=== PATIENT | male | born 1985 | race Caucasian/White ===

== ENCOUNTER 2016-10-10 11:12 | Emergency (ER) | payer OTHER ==
[~2016-10-10 11:12] MED LIST: /CELE20CA OR; /PANT40TA OR; No Historical Meds; PERC5TAB8 OR
--- NOTE | 2016-10-10 12:12 | EDDOCDS ---
Physician Documentation [facility] Name: Dallin Menendez Age: 31 yrs Sex: Male : 1985 Arrival Date: 10/10/2016 Time: 11:12 Bed TR3 Private MD: Charli Guardado Disposition: 10/10/16 12:01 Discharged to Home/Self Care. Impression: Cervical disc disorder with radiculopathy, cervicothoracic region - CAUSING PAIN BILATERALLY. - Condition is Stable. - Discharge Instructions: Cervical Radiculopathy. - Prescriptions for Valium 5 mg Oral Tablet - take 1 tablet by ORAL route at bedtime As needed MDD: 3 tabs; 12 tablet. Prednisone 20 mg Oral Tablet - take 2 tablet by ORAL route once daily for 5 days; 10 tablet. - Medication Reconciliation, Local Pharmacy Hours form. - Follow up: Emergency Department; When: As needed; Reason: Worsening of conditions. Follow up: Private Physician; When: 2 - 3 days; Reason: Wound/Symptom Recheck, Recheck today's complaints, Continuance of care. - Problem is new. - Symptoms are unchanged. Historical: - Allergies: no known allergies; - Home Meds: 1. none - PMHx: GERD; lacerated kidney; - PSHx: right hand surgery; - Social history: Smoking status: Patient uses tobacco products, current some day smoker. No barriers to communication noted, The patient speaks fluent Irish, Speaks appropriately for age. - Family history: Not pertinent. - : The pt / caregiver states he / she is not on anticoagulants. Home medication list is obtained from the patient. - Exposure Risk Screening:: None identified. Vital Signs: 10/10 11:15 BP 113 / 67; Pulse 74; Resp 18; Temp 97.1; Pulse Ox 98% on R/A; Weight 81.65 kg / jrd 180.01 lbs (R); Height 5 ft. 7 in. (170.18 cm) (R); Pain 6/10; 11:15 Body Mass Index 28.19 (81.65 kg, 170.18 cm) jrd MDM: 12:03 Financial registration complete. lg Signatures: Royce Nguyen, Reg Reg lg Alexy Alvarez RN RN mlb1 Laura Deal PA-C PALali dt4 Belles,Alexy,RN RN mb9 JUANISD
--- NOTE | 2016-10-10 12:12 | EDDOCDS ---
Nurse's Notes [facility] Name: Dallin Menendez Age: 31 yrs Sex: Male : 1985 Arrival Date: 10/10/2016 Time: 11:12 Bed TR3 Private MD: Charli Guardado Diagnosis: Cervical disc disorder with radiculopathy, cervicothoracic region-CAUSING PAIN BILATERALLY Presentation: 10/10 11:20 Presenting complaint: Patient states: Neck and bilateral shoulder pain began six months mlb1 ago worse in the past few days. Risk Factors No acute neurological deficit is noted. Adult Sepsis Screening: The patient does not have new or worsening altered mentation. Patient's respiratory rate is less than 22. Systolic blood pressure is greater than 100. Patient has a qSOFA score of 0- Negative Sepsis Screen. Suicide/Homicide risk assessment- the patient denies having any suicidal and/or homicidal ideations and does not present with any other emotional, behavioral or mental health complaints. Status: Patient is not a seafood service team member or dependent. Transition of care: patient was not received from another setting of care. 11:20 Acuity: SARABJIT Level 4 mlb1 11:20 Method Of Arrival: Walkin/Carried/Asstd mlb1 Triage Assessment: 11:21 General: Appears uncomfortable, Behavior is appropriate for age, cooperative. Pain: mlb1 Location: back of neck Pain currently is 6 out of 10 on a pain scale. At worst was 10 out of 10 on a pain scale. Aggravated by increased activity, repositioning. HIV screening NA for this visit Offered previously. Historical: - Allergies: no known allergies; - Home Meds: 1. none - PMHx: GERD; lacerated kidney; - PSHx: right hand surgery; - Social history: Smoking status: Patient uses tobacco products, current some day smoker. No barriers to communication noted, The patient speaks fluent Malay, Speaks appropriately for age. - Family history: Not pertinent. - : The pt / caregiver states he / she is not on anticoagulants. Home medication list is obtained from the patient. - Exposure Risk Screening:: None identified. Screenin:22 Screening information is obtained from the patient. Fall risk: No risks identified. mlb1 Assistance ADL's: requires no assistance with activities of daily living. Abuse/DV Screen: The patient / caregiver reports he/she is: not in a situation that causes fear, pain or injury. Nutritional screening: No deficits noted. Advance Directives: Currently, there is no health care proxy. home support is adequate. Assessment: 12:09 General: Appears uncomfortable, Behavior is appropriate for age, cooperative. Pain: mb9 Location: back of neck Pain currently is 5 out of 10 on a pain scale. Neurological: Level of Consciousness is awake, alert, Oriented to person, place, time. Respiratory: Airway is patent Respiratory effort is even, unlabored. Vital Signs: 11:15 BP 113 / 67; Pulse 74; Resp 18; Temp 97.1; Pulse Ox 98% on R/A; Weight 81.65 kg (R); jrd Height 5 ft. 7 in. (170.18 cm) (R); Pain 6/10; 11:15 Body Mass Index 28.19 (81.65 kg, 170.18 cm) [facility] Vitals: 11:15 Log In Time: October 10, 2016 at 10:45. [facility] ED Course: 11:14 Patient visited by Rip Boyle PCA. jrd 11:14 Patient moved to Waiting jrd 11:15 Charli Guardado is Private Physician. jrd 11:16 Patient visited by Rip Boyle PCA. jrd 11:16 Patient moved to Pre RCE jrd 11:20 Patient visited by Alexy Alvarez RN. mlb1 11:21 Triage Initiated mlb1 11:22 The patient / caregiver is instructed regarding the plan of care and ED course. mlb1 11:23 Patient visited by Alexy Alvarez RN. mlb1 11:23 Patient moved to Triage 1 mlb1 11:25 Patient moved to Pre RCE mlb1 11:32 Patient moved to Triage 3 mb9 11:45 [facility] dt4 11:45 Owen Evans MD is Attending Physician. dt4 11:45 Patient visited by Laura Deal PA-C. dt4 12:08 Patient moved to TR3 mb9 12:09 No IV's were initiated during this patient's visit. No procedures done that require mb9 assistance. Order Results: There are currently no results for this order. Outcome: 12:01 Discharge ordered by Provider. dt4 12:09 Discharge Assessment: Patient awake, alert and oriented x 3. No cognitive and/or mb9 functional deficits noted. Patient verbalized understanding of disposition instructions. patient administered narcotics - no. The following High Risk Discharge criteria are identified: None. Discharged to home ambulatory. Condition: good Condition: stable Condition: improved. Discharge instructions given to patient, Instructed on discharge instructions, follow up and referral plans. medication usage, no driving heavy equipment, Demonstrated understanding of instructions, medications, Pt was receptive of discharge instructions/ teaching. Prescriptions given X 2. No special radiology studies were completed. Property :Personal belongings accompany Pt. 12:11 Patient left the ED. mb9 Signatures: Alexy Alvarez, RN RN mlb1 Laura Deal, PAIbethC PA-Mary dt4 Rip Boyle, [employer]EN [employer]AC[employer] TECHNICIAN Alexy Corrales,RN RN mb9 FLOR
--- NOTE | 2016-10-12 13:12 | EDDOCDS ---
Physician Documentation [facility] Name: Dallin Menendez Age: 31 yrs Sex: Male : 1985 Arrival Date: 10/10/2016 Time: 11:12 Bed TR3 Private MD: Charli Guardado Disposition: 10/10/16 12:01 Discharged to Home/Self Care. Impression: Cervical disc disorder with radiculopathy, cervicothoracic region - CAUSING PAIN BILATERALLY. - Condition is Stable. - Discharge Instructions: Cervical Radiculopathy. - Prescriptions for Valium 5 mg Oral Tablet - take 1 tablet by ORAL route at bedtime As needed MDD: 3 tabs; 12 tablet. Prednisone 20 mg Oral Tablet - take 2 tablet by ORAL route once daily for 5 days; 10 tablet. - Medication Reconciliation, Local Pharmacy Hours form. - Follow up: Emergency Department; When: As needed; Reason: Worsening of conditions. Follow up: Private Physician; When: 2 - 3 days; Reason: Wound/Symptom Recheck, Recheck today's complaints, Continuance of care. - Problem is new. - Symptoms are unchanged. Historical: - Allergies: no known allergies; - Home Meds: 1. none - PMHx: GERD; lacerated kidney; - PSHx: right hand surgery; - Social history: Smoking status: Patient uses tobacco products, current some day smoker. No barriers to communication noted, The patient speaks fluent Mozambican, Speaks appropriately for age. - Family history: Not pertinent. - : The pt / caregiver states he / she is not on anticoagulants. Home medication list is obtained from the patient. - Exposure Risk Screening:: None identified. Vital Signs: 10/10 11:15 BP 113 / 67; Pulse 74; Resp 18; Temp 97.1; Pulse Ox 98% on R/A; Weight 81.65 kg / jrd 180.01 lbs (R); Height 5 ft. 7 in. (170.18 cm) (R); Pain 6/10; 11:15 Body Mass Index 28.19 (81.65 kg, 170.18 cm) jrd MDM: 12:03 Financial registration complete. lg 12:25 [facility] Payment Agreement was scanned into [employer] and attached to record. lg 14:28 T-Sheet-- Draft Copy was scanned into [employer] and attached to record. klr Signatures: Ganter, LoriLee, Reg Reg lg Alexy Alavrez RN RN mlb1 Laura Deal PA-C PALali dt4 Alexy Burton RN RN mb9 Zehra Schusterr The chart was reviewed and I authenticate all verbal orders and agree with the evaluation and treatment provided.Attachments: 12:25 [facility] Payment Agreement lg 14:28 T-Sheet-- Draft Copy klr Chart Complete MTDD
--- NOTE | 2016-10-12 13:12 | EDDOCDS ---
Physician Documentation [facility] Name: Dallin Menendez Age: 31 yrs Sex: Male : 1985 Arrival Date: 10/10/2016 Time: 11:12 Bed TR3 Private MD: Charli Guardado Disposition: 10/10/16 12:01 Discharged to Home/Self Care. Impression: Cervical disc disorder with radiculopathy, cervicothoracic region - CAUSING PAIN BILATERALLY. - Condition is Stable. - Discharge Instructions: Cervical Radiculopathy. - Prescriptions for Valium 5 mg Oral Tablet - take 1 tablet by ORAL route at bedtime As needed MDD: 3 tabs; 12 tablet. Prednisone 20 mg Oral Tablet - take 2 tablet by ORAL route once daily for 5 days; 10 tablet. - Medication Reconciliation, Local Pharmacy Hours form. - Follow up: Emergency Department; When: As needed; Reason: Worsening of conditions. Follow up: Private Physician; When: 2 - 3 days; Reason: Wound/Symptom Recheck, Recheck today's complaints, Continuance of care. - Problem is new. - Symptoms are unchanged. Historical: - Allergies: no known allergies; - Home Meds: 1. none - PMHx: GERD; lacerated kidney; - PSHx: right hand surgery; - Social history: Smoking status: Patient uses tobacco products, current some day smoker. No barriers to communication noted, The patient speaks fluent Indonesian, Speaks appropriately for age. - Family history: Not pertinent. - : The pt / caregiver states he / she is not on anticoagulants. Home medication list is obtained from the patient. - Exposure Risk Screening:: None identified. Vital Signs: 10/10 11:15 BP 113 / 67; Pulse 74; Resp 18; Temp 97.1; Pulse Ox 98% on R/A; Weight 81.65 kg / jrd 180.01 lbs (R); Height 5 ft. 7 in. (170.18 cm) (R); Pain 6/10; 11:15 Body Mass Index 28.19 (81.65 kg, 170.18 cm) jrd MDM: 12:03 Financial registration complete. lg 12:25 [facility] Payment Agreement was scanned into [employer] and attached to record. lg 14:28 T-Sheet-- Draft Copy was scanned into [employer] and attached to record. klr Signatures: Ganter, LoriLee, Reg Reg lg Alexy Alvarez RN RN mlb1 Laura Deal PA-C PALali dt4 Alexy Burton RN RN mb9 Zehra Schusterr The chart was reviewed and I authenticate all verbal orders and agree with the evaluation and treatment provided.Attachments: 12:25 [facility] Payment Agreement lg 14:28 T-Sheet-- Draft Copy klr Chart Complete MTDD
--- NOTE | 2016-10-12 13:12 | EDDOCDS ---
Nurse's Notes [facility] Name: Dallin Menendez Age: 31 yrs Sex: Male : 1985 Arrival Date: 10/10/2016 Time: 11:12 Bed TR3 Private MD: Charli Guardado Diagnosis: Cervical disc disorder with radiculopathy, cervicothoracic region-CAUSING PAIN BILATERALLY Presentation: 10/10 11:20 Presenting complaint: Patient states: Neck and bilateral shoulder pain began six months mlb1 ago worse in the past few days. Risk Factors No acute neurological deficit is noted. Adult Sepsis Screening: The patient does not have new or worsening altered mentation. Patient's respiratory rate is less than 22. Systolic blood pressure is greater than 100. Patient has a qSOFA score of 0- Negative Sepsis Screen. Suicide/Homicide risk assessment- the patient denies having any suicidal and/or homicidal ideations and does not present with any other emotional, behavioral or mental health complaints. Status: Patient is not a direct service professional or dependent. Transition of care: patient was not received from another setting of care. 11:20 Acuity: SARABJIT Level 4 mlb1 11:20 Method Of Arrival: Walkin/Carried/Asstd mlb1 Triage Assessment: 11:21 General: Appears uncomfortable, Behavior is appropriate for age, cooperative. Pain: mlb1 Location: back of neck Pain currently is 6 out of 10 on a pain scale. At worst was 10 out of 10 on a pain scale. Aggravated by increased activity, repositioning. HIV screening NA for this visit Offered previously. Historical: - Allergies: no known allergies; - Home Meds: 1. none - PMHx: GERD; lacerated kidney; - PSHx: right hand surgery; - Social history: Smoking status: Patient uses tobacco products, current some day smoker. No barriers to communication noted, The patient speaks fluent Upper Sorbian, Speaks appropriately for age. - Family history: Not pertinent. - : The pt / caregiver states he / she is not on anticoagulants. Home medication list is obtained from the patient. - Exposure Risk Screening:: None identified. Screenin:22 Screening information is obtained from the patient. Fall risk: No risks identified. mlb1 Assistance ADL's: requires no assistance with activities of daily living. Abuse/DV Screen: The patient / caregiver reports he/she is: not in a situation that causes fear, pain or injury. Nutritional screening: No deficits noted. Advance Directives: Currently, there is no health care proxy. home support is adequate. Assessment: 12:09 General: Appears uncomfortable, Behavior is appropriate for age, cooperative. Pain: mb9 Location: back of neck Pain currently is 5 out of 10 on a pain scale. Neurological: Level of Consciousness is awake, alert, Oriented to person, place, time. Respiratory: Airway is patent Respiratory effort is even, unlabored. Vital Signs: 11:15 BP 113 / 67; Pulse 74; Resp 18; Temp 97.1; Pulse Ox 98% on R/A; Weight 81.65 kg (R); jrd Height 5 ft. 7 in. (170.18 cm) (R); Pain 6/10; 11:15 Body Mass Index 28.19 (81.65 kg, 170.18 cm) [facility] Vitals: 11:15 Log In Time: October 10, 2016 at 10:45. [facility] ED Course: 11:14 Patient visited by Rip Boyle PCA. jrd 11:14 Patient moved to Waiting jrd 11:15 Charli Guardado is Private Physician. jrd 11:16 Patient visited by Rip Boyle PCA. jrd 11:16 Patient moved to Pre RCE jrd 11:20 Patient visited by Alexy Alvarez, GILMAR. mlb1 11:21 Triage Initiated mlb1 11:22 The patient / caregiver is instructed regarding the plan of care and ED course. mlb1 11:23 Patient visited by Alexy Alvarez RN. mlb1 11:23 Patient moved to Triage 1 mlb1 11:25 Patient moved to Pre RCE mlb1 11:32 Patient moved to Triage 3 mb9 11:45 Laura Deal PA-C is PHCP. dt4 11:45 Owen Evans MD is Attending Physician. dt4 11:45 Patient visited by Laura Deal PA-C. dt4 12:08 Patient moved to TR3 mb9 12:09 No IV's were initiated during this patient's visit. No procedures done that require mb9 assistance. 12:25 [facility] [place] Agreement was scanned into [employer] and attached to record. lg 14:28 T-Sheet-- Draft Copy was scanned into [employer] and attached to record. klr Order Results: There are currently no results for this order. Outcome: 12:01 Discharge ordered by Provider. dt4 12:09 Discharge Assessment: Patient awake, alert and oriented x 3. No cognitive and/or mb9 functional deficits noted. Patient verbalized understanding of disposition instructions. patient administered narcotics - no. The following High Risk Discharge criteria are identified: None. Discharged to home ambulatory. Condition: good Condition: stable Condition: improved. Discharge instructions given to patient, Instructed on discharge instructions, follow up and referral plans. medication usage, no driving heavy equipment, Demonstrated understanding of instructions, medications, Pt was receptive of discharge instructions/ teaching. Prescriptions given X 2. No special radiology studies were completed. Property :Personal belongings accompany Pt. 12:11 Patient left the ED. mb9 Signatures: Royce Nguyen, Alexy Lopez lg RN RN mlb1 Laura Deal, PA-C PA-C dt4 Rip Boyle PCA PCA jrd Belles, MichaelRN RN mb9 Zehra Schuster klr Chart Complete FLOR
== END 2016-10-10 12:11 | disposition home or self-care (01) ==
LOC: M ED 11:12
DX: M54.12 Radiculopathy, cervical region (principal); K21.9 Gastro-esophageal reflux disease without esophagitis; Z72.0 Tobacco use

== ENCOUNTER 2018-02-25 21:26 | Emergency (ER) | payer SELFPAY, OTHER ==
[2018-02-25] MEDS: LIDOCAINE 1% MDV 20ML VIAL SC (22:19)
[2018-02-25] MEDS: ceFAZolin SOD 1 GM in D5W MINI-BAG PLUS 50 ML IV (22:29)
[2018-02-25] MEDS: MORPHINE 4 MG/ML 1ML VIAL/SYRINGE (J2270) IV (22:29)
[2018-02-25] MEDS: ADACEL/BOOSTRIX VACCINE (DIPHTH/PERTUSS/ACELL/TETANUS)0.5ML SYR (90715) IM (22:30)
== END 2018-02-25 22:59 | disposition home or self-care (01) ==
LOC: M ED 22:59
DX: S61.213A Laceration without foreign body of left middle finger without damage to nail, initial encounter (principal); W31.89XA Contact with other specified machinery, initial encounter; Y92.9 Unspecified place or not applicable; Y93.9 Activity, unspecified; Y99.9 Unspecified external cause status
CPT/HCPCS: J0690

== ENCOUNTER 2019-07-26 06:54 | Emergency (ER) | payer SELFPAY ==
[~2019-07-26] VITALS: Ht 167.6 cm; Wt 76.1 kg
[~2019-07-26 06:54] MED LIST changes: -/CELE20CA OR; -/PANT40TA OR; +CELE1CAP4 OR; +PROT1TAB2 OR
[2019-07-26] MEDS ORDERED: KETOROLAC 30 MG/ML VIAL (J1885) IV ONE (07:15)
[2019-07-26 07:23] LABS: BASO # 0.1 10^3/uL (0.0-0.2); BASO % 0.4 % (0.0-1.0); EOS % 0.1 % (0.0-3.0); HEMATOCRIT 47.7 % (42.0-52.0); HEMOGLOBIN 16.5 g/dl (13.5-17.5); LYMPH # 1.5 10^3/uL (1.5-5.0); LYMPH % 7.7 % (24.0-44.0); MEAN CORPUSCULAR HEMOGLOBIN 31.3 pg (27.0-33.0); MEAN CORPUSCULAR HGB CONC 34.6 g/dl (32.0-36.5); MEAN CORPUSCULAR VOLUME 90.3 fl (80.0-96.0); MONO % 5.4 % (0.0-5.0); NEUTROPHILS # 16.5 10^3/uL (1.5-8.5); NEUTROPHILS % 85.9 % (36.0-66.0); PLATELET COUNT, AUTOMATED 260 10^3/uL (150-450); RED BLOOD COUNT 5.28 10^6/uL (4.30-6.10); WHITE BLOOD COUNT 19.2 10^3/uL (4.0-10.0)
--- NOTE | 2019-07-26 07:47 | REPVR ---
PROCEDURE INFORMATION: Exam: CT Abdomen And Pelvis Without Contrast Exam date and time: 07/26/2019 7:28 AM Age: 34 years old Clinical history: Abdominal pain; Flank; Left; Additional info: Left flank pain with sudden onset; R/O stone TECHNIQUE: Imaging protocol: Computed tomography of the abdomen and pelvis without contrast. Radiation optimization: All CT scans at this facility use at least one of these dose optimization techniques: automated exposure control; mA and/or kV adjustment per patient size (includes targeted exams where dose is matched to clinical indication); or iterative reconstruction. COMPARISON: No relevant prior studies available. FINDINGS: Limitations: Evaluation is somewhat limited by lack of IV contrast. Lungs: The visualized lung bases are essentially clear. Liver: Grossly unremarkable. Gallbladder and bile ducts: No gallstones are evident, but ultrasound would be more sensitive. No gross biliary ductal dilatation. Pancreas: Grossly unremarkable. Spleen: A small splenule is noted. The spleen itself appears grossly unremarkable. Adrenals: Grossly unremarkable. Kidneys and ureters: Mild left-sided hydronephrosis secondary to a 5 x 4 x 2 mm proximal left ureteral stone. Beyond this, the ureter is not dilated, and no additional ureteral calculus is identified. The right kidney contains a 3 mm nonobstructing stone. There is no evidence of hydronephrosis or ureteral calculus. The kidneys appear otherwise grossly unremarkable. Stomach and bowel: The unopacified small bowel is not significantly distended to suggest obstruction. The large bowel is grossly unremarkable in appearance. Appendix: The appendix appears normal. Intraperitoneal space: No free air or significant free fluid. Vasculature: Unremarkable. No abdominal aortic aneurysm. Lymph nodes: No gross pathologic lymphadenopathy. Bladder: Grossly unremarkable. Reproductive: The prostate contains a small calcification. Bones/joints: Mild degenerative changes involve the spine. Soft tissues: Very small fat containing umbilical and bilateral inguinal hernias. IMPRESSION: 1. Mild left-sided hydronephrosis secondary to a 5 x 4 x 2 mm proximal left ureteral stone. 2. Small nonobstructing right renal stone. 3. Very small fat containing umbilical and bilateral inguinal hernias. Electronically signed by: Alexy Ruiz On 07/26/2019 07:47:00 AM
[2019-07-26 07:51] LABS: ALBUMIN 4.2 GM/DL (3.2-5.2); BILIRUBIN,DIRECT 0.1 MG/DL (0.0-0.2); BILIRUBIN,TOTAL 0.5 MG/DL (0.2-1.0); CALCIUM LEVEL 9.3 MG/DL (8.5-10.1); CREATININE FOR GFR 1.46 MG/DL (0.70-1.30); GLOMERULAR FILTRATION RATE 59.6 (>60); POTASSIUM SERUM 4.6 MEQ/L (3.5-5.1)
[2019-07-26] MEDS ORDERED: NS 1,000 ML IV ONE (08:15)
[2019-07-26] MEDS ORDERED: NORC1TAB7 PO (11:42)
[2019-07-26] MEDS ORDERED: ONDA4TAB6 PO (11:42)
[2019-07-26] MEDS ORDERED: FLOM0.4C39 PO (11:42)
[2019-07-26 11:43] VITALS: BP 125/78
[2019-07-26] MEDS ORDERED: TAMSULOSIN 0.4 MG CAP PO ONE (11:45)
== END 2019-07-26 11:59 | disposition home or self-care (01) ==
LOC: M ED 06:54
DX: N13.2 Hydronephrosis with renal and ureteral calculous obstruction (principal); K40.90 Unilateral inguinal hernia, without obstruction or gangrene, not specified as recurrent; F17.200 Nicotine dependence, unspecified, uncomplicated; F12.90 Cannabis use, unspecified, uncomplicated
CPT/HCPCS: 74176; 80048; 80076; 81001; 83690; 85025; 96361; 96374; 99284; J1885

== ENCOUNTER 2019-08-03 09:14 | Emergency (ER) | payer SELFPAY ==
[~2019-08-03] VITALS: Ht 167.6 cm; Wt 79.5 kg
[~2019-08-03 09:14] MED LIST changes: +FLOM0.4C39 PO; +NORC1TAB7 PO; +ONDA4TAB6 PO
[2019-08-03] MEDS ORDERED: KETOROLAC 30 MG/ML VIAL (J1885) IV ONE (09:45)
[2019-08-03] MEDS ORDERED: NS 1,000 ML IV ONE (09:45)
[2019-08-03 10:05] LABS: BASO # 0.1 10^3/uL (0.0-0.2); BASO % 0.8 % (0.0-1.0); EOS # 0.3 10^3/uL (0.0-0.5); EOS % 2.9 % (0.0-3.0); HEMATOCRIT 43.8 % (42.0-52.0); HEMOGLOBIN 14.9 g/dl (13.5-17.5); LYMPH # 2.3 10^3/uL (1.5-5.0); LYMPH % 21.8 % (24.0-44.0); MEAN CORPUSCULAR HEMOGLOBIN 31.5 pg (27.0-33.0); MEAN CORPUSCULAR VOLUME 92.6 fl (80.0-96.0); MONO # 0.9 10^3/uL (0.0-0.8); MONO % 8.5 % (0.0-5.0); NEUTROPHILS # 6.9 10^3/uL (1.5-8.5); NEUTROPHILS % 65.6 % (36.0-66.0); PLATELET COUNT, AUTOMATED 226 10^3/uL (150-450); RED BLOOD COUNT 4.73 10^6/uL (4.30-6.10); WHITE BLOOD COUNT 10.5 10^3/uL (4.0-10.0)
[2019-08-03 10:28] LABS: ALBUMIN 3.5 GM/DL (3.2-5.2); ALT/SGPT 31 U/L (12-78); BILIRUBIN,DIRECT < 0.1 MG/DL (0.0-0.2); BILIRUBIN,TOTAL 0.2 MG/DL (0.2-1.0); LIPASE 119 U/L (73-393)
--- NOTE | 2019-08-03 10:38 | REP ---
CT ABDOMEN AND PELVIS WITHOUT IV OR ORAL CONTRAST: HISTORY: Worsening left flank pain. Evaluate for stone. COMPARISON STUDY: July 26, 2019. CT FINDINGS: Digital preliminary residential manager radiograph is unremarkable. The lung bases are clear. The liver and the spleen are normal in size homogeneous in texture. There is a tiny accessory splenule. No adrenal lesion is seen on either side. No abnormality is noted in the pancreas or the gallbladder. Small and large intestinal bowel loops are normal in the abdomen and pelvis. Normal appendix is seen. There is a dystrophic calcification in the left side of the prostate. Urinary bladder is unremarkable. Seminal vesicles are normal in appearance. There is moderate hydronephrosis affecting the left kidney. The left proximal ureter is dilated to the level of the lower pole in the left kidney where there is a 6 mm irregular calculus unchanged in position from the July 26, 2019 prior study. There is periureteral stranding. No other ureteral calculus is seen. There is a nonobstructive intrarenal calculus in the lower pole right kidney which measures 3 mm in size. This is unchanged as well. No other abnormality. IMPRESSION: Persistent moderate hydronephrosis on the left due to an obstructing 6 mm proximal ureteral calculus. This calculus is unchanged in position from its appearance on July 26, 2019. There is an intrarenal calculus in the lower pole right kidney as well without right-sided hydronephrosis. Otherwise negative. Electronically Signed by Mitch Lopez MD 08/03/2019 12:14 P
[2019-08-03] MEDS ORDERED: KETO10TAB PO (11:34)
[2019-08-03] MEDS ORDERED: TAMS1CAP17 PO (11:34)
[2019-08-03 11:47] VITALS: BP 136/69
== END 2019-08-03 11:49 | disposition home or self-care (01) ==
LOC: M ED 09:14
DX: N13.2 Hydronephrosis with renal and ureteral calculous obstruction (principal)
CPT/HCPCS: 74176; 80047; 80076; 81001; 83690; 85025; 96361; 96374; 99284; J1885

== ENCOUNTER 2019-08-07 09:58 | Day surgery (SDC) | payer SELFPAY ==
[~2019-08-07] VITALS: Ht 167.6 cm; Wt 77.0 kg
[~2019-08-07 09:58] MED LIST changes: +KETO10TAB PO; +LIDOCAINE 2% INJ 100 MG/5 ML SDV (FOR ANES.) As Ordered ONE; +LR 1,000 ML IV ONE; +MIDAZOLAM INJ 2 MG/2 ML VIAL (J2250) As Ordered ONE; +PROPOFOL 200 MG/20 ML VIAL As Ordered ONE; +TAMS1CAP17 PO; +ceFAZolin SOD 2 GM in IV 1 EA IV ONE; +fentaNYL 100 MCG/2 ML INJECTION (J3010) As Ordered ONE
[2019-08-07 10:40] LABS: INR 0.96; PROTHROMBIN TIME 12.5 SECONDS (11.8-14.0)
[2019-08-07] MEDS ORDERED: fentaNYL 100 MCG/2 ML INJECTION (J3010) As Ordered ONE (11:57)
[2019-08-07] MEDS ORDERED: CONRAY-60 60% 50ML VIAL (Q9961) As Ordered ONE (11:57)
[2019-08-07] MEDS ORDERED: ONDANSETRON 4MG/2ML VIAL (J2405) As Ordered ONE (12:08)
[2019-08-07] MEDS ORDERED: ACETAMINOPHEN 1000MG 100ML IV BTL (OFIRMEV) (J0131 PER 10MG) As Ordered ONE (12:08)
[2019-08-07] MEDS ORDERED: KETOROLAC 60 MG/2 ML VIAL (J1885) As Ordered ONE (12:08)
[2019-08-07] MEDS ORDERED: dexameTHASONE 4 MG/ML 1ML VIAL (J1100) As Ordered ONE (12:08)
[2019-08-07] MEDS: oxyCODONE 5MG TAB PO PRN ×2 (13:00→13:25)
[2019-08-07] MEDS ORDERED: oxyCODONE 5MG TAB As Ordered ONE (13:00)
[2019-08-07] MEDS ORDERED: IBUPROFEN 600 MG TAB PO PRN (13:15)
[2019-08-07] MEDS ORDERED: LR 1,000 ML IV SCH ×2 (13:15)
[2019-08-07] MEDS ORDERED: NORCO, ANEXSIA 5/325MG TABLET (HYDROcodone/ACETAMINOPHEN) PO PRN (13:15)
[2019-08-07] MEDS ORDERED: fentaNYL 100 MCG/2 ML INJECTION (J3010) IV PRN (13:15)
[2019-08-07] MEDS ORDERED: ONDANSETRON 4MG/2ML VIAL (J2405) IV PRN (13:15)
[2019-08-07] MEDS ORDERED: NORC1TAB7 PO (14:01)
[2019-08-07 14:30] VITALS: BP 124/74
--- NOTE | 2019-08-07 15:12 | REP ---
RETROGRADE PYELOGRAM: Two views. HISTORY: Stent placement. 39 seconds of fluoroscopy time is reported. FINDINGS: A sequence of two last image hold fluoroscopically obtained spot radiographs of the abdomen document ureteral cannulation, contrast injection, and double pigtail stent placement. No laterality markers are visible. Electronically Signed by Mitch Lopez MD 08/07/2019 05:03 P
--- NOTE | 2019-08-10 08:14 | RO ---
DATE OF PROCEDURE: 08/07/2019 PREOPERATIVE DIAGNOSIS: Left ureteral calculus. POSTOPERATIVE DIAGNOSIS: Left ureteral calculus. PROCEDURE: Cystoscopy with retrograde pyelogram and stent insertion. SURGEON: Dr. Miguel Zavala ANESTHESIA: General. INDICATION FOR OPERATION: This is a 34-year-old white male who presented with severe left ureteral pain and diagnosed with a proximal ureteral stone. He is therefore here today for a stone treatment. DESCRIPTION OF OPERATION: The patient was anesthetized with general anesthesia and placed in a lithotomy position where he was prepped with Betadine paint and draped in an aseptic manner. Time out was then performed. A cystoscope was then introduced into the meatus and advanced under direct vision of a 30 degree lens to the bladder. The urethral channel and prostate channel were normal. The bladder mucosa appeared normal. The left ureteral orifice was then catheterized with a Pollack catheter, injection of Conray showed the patient had a proximal ureteral calculus. A wire guide was then passed up to the renal pelvis followed by a second wire. A ureteroscope was then advanced over the safety wire up to the proximal part of the distal third of the ureter. At this point there was severe noncompliance of the ureter and the system would not dilate. It was therefore decided to leave the stent for dilation and return in 2 weeks rather than cause ureteral injuries. The scope was then removed and the cystoscope is back loaded over the safety wire. A 6 Turkmen double-J stent was then passed over this wire and curled well in the renal pelvis and in the bladder when the wire is removed. The patient was then awakened and sent to recovery room in stable condition having tolerated the procedure well.
== END 2019-08-07 14:35 | disposition home or self-care (01) ==
LOC: M SDC 09:58
PROVIDERS: ATTEND Urology
DX: N20.1 Calculus of ureter (principal); F41.9 Anxiety disorder, unspecified; F17.218 Nicotine dependence, cigarettes, with other nicotine-induced disorders; F12.10 Cannabis abuse, uncomplicated; Z79.899 Other long term (current) drug therapy
CPT/HCPCS: 36415; 52332; 74420; 85610; C1769; C1894; C2617; J0131; J0690; J1100; J1885; J2250; J2405; J3010; Q9961

== ENCOUNTER 2019-08-28 07:49 | Day surgery (SDC) | payer SELFPAY ==
[~2019-08-28] VITALS: Ht 167.6 cm; Wt 74.8 kg
[~2019-08-28 07:49] MED LIST changes: -LIDOCAINE 2% INJ 100 MG/5 ML SDV (FOR ANES.) As Ordered ONE; -MIDAZOLAM INJ 2 MG/2 ML VIAL (J2250) As Ordered ONE; -PROPOFOL 200 MG/20 ML VIAL As Ordered ONE; -fentaNYL 100 MCG/2 ML INJECTION (J3010) As Ordered ONE
[2019-08-28] MEDS ORDERED: PROPOFOL 200 MG/20 ML VIAL As Ordered ONE ×2 (07:51→10:58)
[2019-08-28] MEDS ORDERED: LIDOCAINE 2% INJ 100 MG/5 ML SDV (FOR ANES.) As Ordered ONE (07:51)
[2019-08-28] MEDS ORDERED: MIDAZOLAM INJ 2 MG/2 ML VIAL (J2250) As Ordered ONE (07:51)
[2019-08-28] MEDS ORDERED: ONDANSETRON 4MG/2ML VIAL (J2405) As Ordered ONE (07:51)
[2019-08-28] MEDS ORDERED: dexameTHASONE 4 MG/ML 1ML VIAL (J1100) As Ordered ONE (07:51)
[2019-08-28] MEDS ORDERED: fentaNYL 100 MCG/2 ML INJECTION (J3010) As Ordered ONE ×2 (07:51→11:29)
[2019-08-28] MEDS ORDERED: ACETAMINOPHEN 1000MG 100ML IV BTL (OFIRMEV) (J0131 PER 10MG) As Ordered ONE (07:51)
[2019-08-28] MEDS ORDERED: CONRAY-60 60% 50ML VIAL (Q9961) As Ordered ONE (10:27)
[2019-08-28] MEDS ORDERED: KETOROLAC 60 MG/2 ML VIAL (J1885) As Ordered ONE (10:50)
[2019-08-28] MEDS: fentaNYL 100 MCG/2 ML INJECTION (J3010) IV PRN ×4 (11:26→11:46)
--- NOTE | 2019-08-28 11:42 | REP ---
Retrograde pyelogram: Single view. History: Nephrolithiasis. 1 second of fluoroscopy time is reported. A single fluoroscopically obtained spot radiograph of the abdomen documents ureteral cannulation, contrast injection on the left. Electronically Signed by Mitch Lopez MD 08/28/2019 11:33 A
[2019-08-28 12:00] VITALS: BP 106/60
[2019-08-28] MEDS ORDERED: PERCOCET 5MG/325MG TAB PO PRN (12:00)
[2019-08-28] MEDS ORDERED: ONDANSETRON 4MG/2ML VIAL (J2405) IV PRN (12:00)
[2019-08-28] MEDS ORDERED: LR 1,000 ML IV SCH (12:00)
--- NOTE | 2019-08-28 13:45 | RO ---
DATE OF PROCEDURE: 08/28/2019 PREPROCEDURE DIAGNOSIS: Left ureteral stone. POSTPROCEDURE DIAGNOSIS: Left ureteral stone. PROCEDURE: Cystoscopy, left ureteroscopy with basket extraction of stone, left retrograde pyelogram with intraoperative interpretation of images, left ureteral stent removal. SURGEON: Dr. Darren Sevilla [employer] TEACHER: None. ANESTHESIA: General. OPERATIVE INDICATIONS: This is a 34-year-old male who was found to have an obstructing proximal left ureteral stone several weeks ago. An attempt was made to retrieve the stone a few weeks ago and due to narrowing of the ureter, this was done and a stent was placed. He was brought back to the operating room today to treat his stone. DESCRIPTION OF PROCEDURE: The patient was brought to the operating room, where general anesthesia was induced. Prophylactic antibiotics were infused. He was then placed in the dorsal lithotomy position, prepped and draped in the usual sterile fashion. A rigid cystoscope was then inserted into the urethral meatus and advanced into the bladder. The previously placed left ureteral stent was seen. The stent was then grasped and withdrawn until the distal end was protruding from the urethral meatus. I then advanced a wire up the stent and then removed the stent intact. At this point, a ureteral access sheath was advanced over the wire and into the left collecting system. I went up the access sheath with a flexible ureteroscope and within the proximal ureter the 6 mm stone was seen. The stone was then grasped with a basket and withdrawn. I then went back in with a ureteroscope and examined the kidney thoroughly and no stone was seen within the kidney. A retrograde pyelogram was performed and is notable for mild left hydronephrosis with no extravasation. I then withdrew the ureteroscope along with access sheath and no additional stones were seen within the ureter. Since the ureter was previously dilated with a stent, I opted not to place a new stent. The wire was then removed and, bladder was then emptied of all fluid, and this marked the conclusion of the procedure. The patient was then taken out of the dorsal lithotomy position, awakened from anesthesia, and transported to the recovery room in stable condition. ESTIMATED BLOOD LOSS: 5 mL. COMPLICATIONS: None. SPECIMENS: Kidney stone. PLAN: The patient will followup in the clinic in a few weeks for postoperative visit. FLOR
== END 2019-08-28 12:29 | disposition home or self-care (01) ==
LOC: M SDC 07:49
PROVIDERS: ATTEND Urology
DX: N20.0 Calculus of kidney (principal); N20.1 Calculus of ureter; F12.10 Cannabis abuse, uncomplicated; F17.218 Nicotine dependence, cigarettes, with other nicotine-induced disorders
CPT/HCPCS: 52352; 74420; 82360; 88300; C1769; C1894; J0131; J0690; J1100; J1885; J2250; J2405; J3010; Q9961